=== PATIENT | male | born 1940 | race Caucasian/White ===

== ENCOUNTER 2019-08-12 09:09 | Emergency (ER) | payer MEDICAID, MEDICARE ==
[~2019-08-12] VITALS: Ht 160 cm; Wt 65.8 kg
[2019-08-12] MEDS ORDERED: ATEN25TA PO (09:24)
[2019-08-12] MEDS ORDERED: METF-440 PO (09:24)
[2019-08-12] MEDS ORDERED: OMEP20CA15 PO (09:24)
[2019-08-12 09:35] LABS: BASOPHILS # (AUTO) 0.1 K/uL (0.0-8.0); BASOPHILS % (AUTO) 3.9 % (0.0-2.0); EOSINOPHILS % (AUTO) 1.3 % (0.0-7.0); HEMATOCRIT 39.4 % (36.7-47.1); LYMPHOCYTES % (AUTO) 31.2 % (20.5-51.5); MEAN CORPUSCULAR HEMOGLOBIN 29.7 uug (23.8-33.4); MEAN CORPUSCULAR HGB CONC 33 g/dL (32.5-36.3); MEAN CORPUSCULAR VOLUME 89.7 fL (73.0-96.2); MONOCYTES # (AUTO) 0.2 K/uL (2.0-10.0); MONOCYTES % (AUTO) 5.6 % (0.0-11.0); NEUTROPHILS # (AUTO) 1.9 K/uL (1.8-8.9); PLATELET COUNT (AUTO) 192 K/uL (152-348); RED BLOOD CELL COUNT(AUTO) 4.39 MIL/uL (4.06-5.63); WHITE BLOOD COUNT (AUTO) 3.3 K/uL (3.6-10.2)
[2019-08-12 09:39] LABS: CREATININE 0.9 mg/dL (0.6-1.3); POTASSIUM 3.6 mmol/L (3.5-5.1)
[2019-08-12 09:45] LABS: BILIRUBIN,DIRECT 0.1 mg/dL (0.0-0.2); BILIRUBIN,TOTAL 0.3 mg/dL (0.2-1.0); TOTAL PROTEIN, SERUM 7.1 g/dL (6.4-8.2)
--- NOTE | 2019-08-12 10:35 | NUR ---
PT AMBUALTED TO BATHROOM WITH ASSISSTANCE.
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
--- NOTE | 2019-08-12 14:00 | NUR ---
ANDREA, SOFTWARE WRITER AT BEDSIDE.
--- NOTE | 2019-08-12 14:31 | NUR ---
Patient given written and verbal discharge instructions. Patient verbalizes understanding of instructions. Patient is ambulatory with steady gait. Refuses offer of long-term placement. Patient given list of available shelters in surrounding area. Addendum: 08/12/19 at 1438 by JAYLAN TAP CARD PROVIDED.
[2019-08-12 14:37] VITALS: BP 119/77
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
== END 2019-08-12 14:44 | disposition home or self-care (01) ==
LOC: ER 09:09
DX: F10.129 Alcohol abuse with intoxication, unspecified (principal); Z79.899 Other long term (current) drug therapy; Y90.6 Blood alcohol level of 120-199 mg/100 ml
CPT/HCPCS: 36415; 80048; 80076; 85025; 99283; G0480; A4663

== ENCOUNTER 2020-10-11 14:43 | Emergency (ER) | payer MEDICAID ==
[~2020-10-11] VITALS: Ht 167.6 cm; Wt 63.5 kg
[~2020-10-11 14:43] MED LIST: ATEN25TA PO; METF-440 PO; OMEP20CA15 PO
--- NOTE | 2020-10-11 15:06 | NUR ---
at bedside for assessment
[2020-10-11 15:43] LABS: *BILIRUBIN,URIN NEGATIVE (NEGATIVE); *BLOOD, URINE NEGATIVE (NEGATIVE); *CLARITY,URINE CLEAR (CLEAR); *COLOR,URINE YELLOW (YELLOW); *KETONES,URINE NEGATIVE (NEGATIVE); *UROBILINOGEN,URINE 0.2 E.U./dl (NORMAL); LEUKOCYTE ESTERASE ,URINE NEGATIVE (NEGATIVE); NITRITE, URINE NEGATIVE (NEGATIVE); UGLUCOSE NEGATIVE (NEGATIVE)
[2020-10-11 15:44] LABS: BASOPHILS % (AUTO) 1.5 % (0.0-2.0); EOSINOPHILS % (AUTO) 0.8 % (0.0-7.0); HEMATOCRIT 37.4 % (36.7-47.1); HEMOGLOBIN 12.4 g/dL (12.5-16.3); LYMPHOCYTES # (AUTO) 0.6 K/uL (20.0-40.0); LYMPHOCYTES % (AUTO) 18.5 % (20.5-51.5); MEAN CORPUSCULAR HEMOGLOBIN 27.8 uug (23.8-33.4); MEAN CORPUSCULAR HGB CONC 33 g/dL (32.5-36.3); MEAN CORPUSCULAR VOLUME 83.7 fL (73.0-96.2); MONOCYTES # (AUTO) 0.1 K/uL (2.0-10.0); MONOCYTES % (AUTO) 4.4 % (0.0-11.0); NEUTROPHILS # (AUTO) 2.4 K/uL (1.8-8.9); NEUTROPHILS % (AUTO) 74.8 % (38.5-71.5); PLATELET COUNT (AUTO) 209 K/uL (152-348); RED BLOOD CELL COUNT(AUTO) 4.47 MIL/uL (4.06-5.63); WHITE BLOOD COUNT (AUTO) 3.2 K/uL (3.6-10.2)
[2020-10-11 15:51] LABS: *AMPHETAMINE, URINE NEGATIVE (NEGATIVE); *CANNABINOID, URINE NEGATIVE (NEGATIVE); *COCCAINE, URINE NEGATIVE (NEGATIVE); *OPIATE, URINE NEGATIVE (NEGATIVE); *PHENCYCLIDINE SCREEN,URINE NEGATIVE (NEGATIVE)
[2020-10-11 15:55] LABS: CARBON DIOXIDE 25 mmol/L (21-32); CHLORIDE 100 mmol/L (98-107); CREATININE 1.1 mg/dL (0.6-1.3); GLUCOSE 165 mg/dL (74-106); POTASSIUM 3.9 mmol/L (3.5-5.1); UREA NITROGEN, BLOOD 9 mg/dL (7-18)
[2020-10-11 15:56] LABS: ETHANOL < 3 MG/DL (0-0)
[2020-10-11 16:02] LABS: ACETAMINOPHEN < 2.0 ug/mL (10-30); ALANINE AMINOTRANSFERASE 27 U/L (16-63); ALKALINE PHOSPHATASE 111 U/L (50-136); ASPARTATE AMINOTRANSFERASE 23 U/L (15-37); BILIRUBIN,DIRECT 0.1 mg/dL (0.0-0.2); BILIRUBIN,TOTAL 0.4 mg/dL (0.2-1.0); TOTAL PROTEIN, SERUM 7.8 g/dL (6.4-8.2)
[2020-10-11 16:09] LABS: PHOSPHOROUS 3.8 mg/dL (2.5-4.9)
[2020-10-11 16:10] LABS: THYROID STIMULATING HORMONE 3.642 mIU/mL (0.358-3.740)
[2020-10-11] MEDS ORDERED: METF-440 PO (17:20)
[2020-10-11] MEDS ORDERED: OMEP20CA15 PO (17:20)
[2020-10-11] MEDS ORDERED: ATEN25TA PO (17:20)
--- NOTE | 2020-10-11 18:13 | NUR ---
Patient discharged to home in stable condition. Given TAP card, took all belongings, all needs met, Written and verbal after care instructions given. Patient verbalizes understanding of instructions. Stressed follow up or return to ER for worsening s/s.
[2020-10-11 18:14] VITALS: BP 141/90
== END 2020-10-11 18:14 | disposition home or self-care (01) ==
LOC: ER 14:43
DX: F41.0 Panic disorder [episodic paroxysmal anxiety] (principal); D72.819 Decreased white blood cell count, unspecified; I44.30 Unspecified atrioventricular block; E11.9 Type 2 diabetes mellitus without complications; Z79.84 Long term (current) use of oral hypoglycemic drugs; K21.9 Gastro-esophageal reflux disease without esophagitis; Z79.899 Other long term (current) drug therapy; H91.90 Unspecified hearing loss, unspecified ear
CPT/HCPCS: 36415; 70030-TC; 70450; 71045; 83690; 83735; 84100; 84443; 85025; 93005; A4663; G0480

== ENCOUNTER 2021-08-30 20:39 | Inpatient (IN) | payer MEDICARE, OTHER ==
[~2021-08-30] VITALS: Ht 170.2 cm; Wt 63.0 kg
--- NOTE | 2021-08-30 21:00 | NUR ---
pt bib ra for c/o abd pain.
[2021-08-30 21:21] LABS: HEMATOCRIT 35.6 % (36.7-47.1); MEAN CORPUSCULAR HEMOGLOBIN 27.8 uug (23.8-33.4); MEAN CORPUSCULAR VOLUME 85.5 fL (73.0-96.2); PLATELET COUNT (AUTO) 260 K/uL (152-348)
[2021-08-30 21:31] LABS: CREATININE 1.2 mg/dL (0.6-1.3)
[2021-08-30 21:37] LABS: BILIRUBIN,DIRECT 0.1 mg/dL (0.0-0.2); BILIRUBIN,TOTAL 0.3 mg/dL (0.2-1.0); TOTAL PROTEIN, SERUM 7.5 g/dL (6.4-8.2)
--- NOTE | 2021-08-30 21:45 | NUR ---
pt taken for cat scan.
[2021-08-30 21:48] LABS: *BILIRUBIN,URIN NEGATIVE (NEGATIVE); *CLARITY,URINE CLEAR (CLEAR); *COLOR,URINE YELLOW (YELLOW); *KETONES,URINE NEGATIVE (NEGATIVE); *UROBILINOGEN,URINE 0.2 E.U./dl (NORMAL); LEUKOCYTE ESTERASE ,URINE NEGATIVE (NEGATIVE); NITRITE, URINE NEGATIVE (NEGATIVE); PH,URINE 5.5 (5.0-8.0); UGLUCOSE NEGATIVE (NEGATIVE)
[2021-08-30 21:52] LABS: *BLOOD, URINE TRACE (NEGATIVE)
--- NOTE | 2021-08-30 22:00 | NUR ---
pt return from cat scan.
[2021-08-30 22:09] LABS: BACTERIA,URINE NONE SEEN /HPF (NONE SEEN); RBC,URINE 0-3 /HPF (0-3); SQUAMOUS EPITHELIAL CELL,UR FEW /HPF (NONE SEEN); WBC,URINE 0-3 /HPF (0-3)
[2021-08-30 22:22] LABS: *AMPHETAMINE, URINE NEGATIVE (NEGATIVE); *CANNABINOID, URINE NEGATIVE (NEGATIVE); *COCCAINE, URINE NEGATIVE (NEGATIVE); *OPIATE, URINE NEGATIVE (NEGATIVE); *PHENCYCLIDINE SCREEN,URINE NEGATIVE (NEGATIVE)
[2021-08-30] MEDS ORDERED: IV NS 1000 ML 1,000 ML IV ONE (23:00)
--- NOTE | 2021-08-30 23:21 | NUR ---
pt taken to cat scan.
[2021-08-30] MEDS ORDERED: METRONIDAZOLE 500 MG/NS 100 ML PIGGYBACK IV ONE (23:30)
[2021-08-30] MEDS ORDERED: VANCOMYCIN 1G/D5W 200 ML PIGGYBACK IV ONE (23:30)
[2021-08-30] MEDS ORDERED: PIPERACILLIN SODIUM/TAZOBACTAM 3.375 G in IV DEXTROSE 5% 50 ML IV ONE (23:30)
--- NOTE | 2021-08-30 23:42 | NUR ---
pt return from cat scan.
[2021-08-30] MEDS ORDERED: PIPERACILLIN/TAZOBACTAM/D5W 50 ML IV ONE (23:56)
--- NOTE | 2021-08-30 23:56 | NUR ---
call to [facility] for panel call for admission.
--- NOTE | 2021-08-31 00:06 | NUR ---
Dr. Leonid Green spoke with Dr. Lozano for admisison orders.
[2021-08-31] MEDS ORDERED: ACETAMINOPHEN 325 MG TABLET PO PRN (00:45)
[2021-08-31] MEDS ORDERED: MORPHINE SULFATE 2 MG/1 ML DISP.SYRIN IV PRN (00:45)
[2021-08-31] MEDS ORDERED: ONDANSETRON 4 MG/2 ML VIAL IV PRN (00:45)
--- NOTE | 2021-08-31 02:05 | NUR ---
report given to Georgie SINGLETON pt to go to room 310.
--- NOTE | 2021-08-31 03:30 | NUR ---
Patient arrived on floor via gurney. Alert and oriented x3, hard of hearing. On room air saturating 100%. Temperature 98.3F, HR 51, BP: 125/76. Complaints of dull abdominal pain 3/10, states no medication needed at this time. No nausea or vomiting. No signs of distress. Bed alarm on, bed in the lowest position, call light with in reach. Will continue to monitor.
--- NOTE | 2021-08-31 03:32 | NUR ---
pt transferred to room 310 with all belongings via [facility] with MANI. Brittany SINGLETON at bedside to receive pt.
[2021-08-31] MEDS: ENOXAPARIN SODIUM 40 MG/0.4 ML DISP.SYRIN SQ SCH ×2 (03:45→20:43)
[2021-08-31] MEDS: IV NS 1000 ML 1,000 ML IV PRN ×2 (03:46→20:52)
[2021-08-31 04:00] VITALS: BP 125/76
--- NOTE | 2021-08-31 06:41 | NUR ---
Patient slept soundly through rest of shift. On room air saturating 100%. All needs anticipated and attended to. No signs of pain or distress. Bed in the lowest position, bed alarm on, call light within reach.
[2021-08-31] MEDS: PANTOPRAZOLE SODIUM 40 MG VIAL IV SCH (08:56)
--- NOTE | 2021-08-31 09:39 | NUR ---
Arrived to patient's room awake, alert, and oriented. Hard of hearing requires speaking in louder voice to make needs to known. IV site intact and patent. Call light within reach with bed left in lowest position. Will monitor patient throughout shift.
[2021-08-31 11:11] VITALS: BP 129/79
[2021-08-31 15:16] VITALS: BP 130/52
--- NOTE | 2021-08-31 18:14 | NUR ---
New IV site started on patient's RFA 20G running at 75cc/hr
--- NOTE | 2021-08-31 18:19 | NUR ---
Patient received care today well with no signs of distress or discomfort. Patient is on clear liquid diet. New IV site on LFA 20G running at 75cc/hr of normal saline. Bed left in lowest position with call light within reach. Comfort measures provided. Will endorse information to PM nurse.
[2021-08-31 20:00] VITALS: BP 116/69
--- NOTE | 2021-08-31 20:00 | NUR ---
Patient in bed, AAO x4. He is severely hard of hearing. Able to understand when using signs and speaking loudly and clearly. Patient denies any ABD pain, ABD is soft and non distended. Is on RA, no SOB. Safety measures initiated. Call light within reach.
[2021-09-01 04:00] VITALS: BP 143/85
--- NOTE | 2021-09-01 05:58 | NUR ---
Patient is comfortable this shift, sleeping well. No significant events this shift. No further ABD pain. Call light within reach.
[2021-09-01 06:52] LABS: HEMATOCRIT 30.6 % (36.7-47.1); MEAN CORPUSCULAR HEMOGLOBIN 28.3 uug (23.8-33.4); MEAN CORPUSCULAR VOLUME 84.5 fL (73.0-96.2); PLATELET COUNT (AUTO) 195 K/uL (152-348)
[2021-09-01 07:28] LABS: CREATININE 0.8 mg/dL (0.6-1.3); MAGNESIUM 1.9 mg/dL (1.8-2.4); PHOSPHOROUS 3.7 mg/dL (2.5-4.9); POTASSIUM 3.8 mmol/L (3.5-5.1)
[2021-09-01] MEDS: PANTOPRAZOLE SODIUM 40 MG VIAL IV SCH (08:11)
[2021-09-01] MEDS: IV NS 1000 ML 1,000 ML IV PRN (10:29)
[2021-09-01 11:06] VITALS: BP 138/77
[2021-09-01 15:03] VITALS: BP 128/72
--- NOTE | 2021-09-01 19:30 | NUR ---
Received in bed, AAO x4. Able to make needs known, severely hard of hearing. Able to understand when using signs and speaking loudly and clearly. Patient denies any ABD pain, ABD is soft and non distended. Is on RA, no SOB. Using urinal for voiding. Iv to left FA, intact and patent. Safety measures initiated. Call light within reach.
[2021-09-01 20:06] VITALS: BP 122/72
[2021-09-01] MEDS: ENOXAPARIN SODIUM 40 MG/0.4 ML DISP.SYRIN SQ SCH (20:16)
[2021-09-02] MEDS: IV NS 1000 ML 1,000 ML IV PRN (00:36)
[2021-09-02 04:06] VITALS: BP 129/67
[2021-09-02 06:14] LABS: MEAN CORPUSCULAR HEMOGLOBIN 27.9 uug (23.8-33.4); MEAN CORPUSCULAR VOLUME 84.7 fL (73.0-96.2); PLATELET COUNT (AUTO) 186 K/uL (152-348)
[2021-09-02 06:23] LABS: CREATININE 0.7 mg/dL (0.6-1.3); MAGNESIUM 1.9 mg/dL (1.8-2.4); PHOSPHOROUS 3.8 mg/dL (2.5-4.9); POTASSIUM 3.7 mmol/L (3.5-5.1)
--- NOTE | 2021-09-02 06:48 | NUR ---
No significant events. Tolerating clear liquids well. No ABD pain. Call light within reach.
[2021-09-02] MEDS: PANTOPRAZOLE ORAL SUSPENSION 40 MG SUSPDR.PKT PO SCH (07:29)
[2021-09-02 12:14] VITALS: BP 128/72
[2021-09-02 16:01] VITALS: BP 131/75
[2021-09-02 20:10] VITALS: BP 136/76
[2021-09-02] MEDS: ENOXAPARIN SODIUM 40 MG/0.4 ML DISP.SYRIN SQ SCH (21:46)
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
--- NOTE | 2021-09-03 03:45 | NUR ---
Received to care, lying in bed, pleasant upon approach. Able to verbalize needs well. Heplock to left forearm remains patent, and intact. PRN Tylenol was given at bedtime, for bilateral shoulder pain, which seemed to relieve him, as he went to sleep, shortly afterwards. He has slept well most of the night, and continues to sleep. Call light in reach. No distress noted.
[2021-09-03 04:38] VITALS: BP 134/42
[2021-09-03] MEDS: PANTOPRAZOLE ORAL SUSPENSION 40 MG SUSPDR.PKT PO SCH (07:07)
[2021-09-03 08:13] LABS: HEMATOCRIT 31.9 % (36.7-47.1); MEAN CORPUSCULAR HEMOGLOBIN 27.7 uug (23.8-33.4); MEAN CORPUSCULAR VOLUME 84.3 fL (73.0-96.2); PLATELET COUNT (AUTO) 190 K/uL (152-348)
[2021-09-03 08:27] LABS: CREATININE 0.7 mg/dL (0.6-1.3); MAGNESIUM 1.8 mg/dL (1.8-2.4); PHOSPHOROUS 3.6 mg/dL (2.5-4.9); POTASSIUM 3.6 mmol/L (3.5-5.1)
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
[2021-09-03 11:41] VITALS: BP 128/82
[2021-09-03] MEDS ORDERED: GLUCERNA SHAKE 237 ML CAN PO SCH (13:00)
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
--- NOTE | 2021-09-03 13:27 | NUR ---
Social Work APS Report Protective Services Report (Intake ID [id number] submitted on 09/03/2021 at 01:25PM. A copy of the report has been placed in patients chart.
--- NOTE | 2021-09-03 15:17 | NUR ---
Pt is being discharged to [facility] via [facility] ambulance. He is being admitted to room 28A. Report given to nurse Murphy. Pt aware and stable for discharge. IV/ ID band removed. All belongings at hand, discharge information given to emt for transfer. No signs of distress.
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
== END 2021-09-03 15:25 | DRG 391 ==
LOC: ER 20:40 → TELE3 08-31 03:08 → MEDSURG3 08-31 03:39
PROVIDERS: ADMIT Hospitalist; ATTEND Hospitalist
DX: K21.9 Gastro-esophageal reflux disease without esophagitis (principal); G93.41 Metabolic encephalopathy; E87.2 Acidosis; M84.48XA Pathological fracture, other site, initial encounter for fracture; R10.9 Unspecified abdominal pain; D64.9 Anemia, unspecified; E11.9 Type 2 diabetes mellitus without complications; I10 Essential (primary) hypertension; Z87.891 Personal history of nicotine dependence; Z20.822 Contact with and (suspected) exposure to COVID-19; Z79.84 Long term (current) use of oral hypoglycemic drugs; Z91.14 Patient's other noncompliance with medication regimen; F41.9 Anxiety disorder, unspecified; H91.90 Unspecified hearing loss, unspecified ear; M47.896 Other spondylosis, lumbar region; G93.89 Other specified disorders of brain; I44.0 Atrioventricular block, first degree; M47.815 Spondylosis without myelopathy or radiculopathy, thoracolumbar region; R93.5 Abnormal findings on diagnostic imaging of other abdominal regions, including retroperitoneum; Z98.890 Other specified postprocedural states
CPT/HCPCS: 36415; 70030-TC; 70450; 72125; 72131; 83605; 83690; 83735; 84100; 85025; 87086; 93005; 97161; C1758; C9113; G0378; G0480; J1650; J2543; J3370; J3490; J7030; J7060